=== PATIENT | female | born 1960 | race Caucasian/White ===

== ENCOUNTER → 2023-12-10 14:13 | Outpatient (REF) | payer MEDICARE, MEDICAID, SELFPAY | LOC: HWWDC 14:13 | PROVIDERS: ATTENDING PHYSICIAN Internal Medicine | DX: Z12.31 Encounter for screening mammogram for malignant neoplasm of breast (principal) | CPT/HCPCS: 77063; 77067 ==

== ENCOUNTER 2024-11-24 11:19 | Emergency (ER) | payer MEDICARE, MEDICAID, SELFPAY ==
[2024-11-24 11:22] VITALS: BP 133/71
[2024-11-24 11:26] VITALS: BP 133/71
--- NOTE | 2024-11-24 11:53 | ED.GENMED ---
History of Present Illness
General
Chief Complaint: Weakness
Time Seen by Provider: 11/24/24 11:21
History of Present Illness
History of Present Illness:
64-year-old female with history of bipolar disorder presenting from her facility for concern of hypoxia. Patient noted to have productive cough, with exposure to influenza at the facility. Oxygen saturation was high 80s to low 90s prior to
arrival. Patient on arrival without acute complaints. She does admit to coughing, however denies chest pain or difficulty breathing. Denies fever. Denies abdominal pain, nausea, vomiting. Denies any present acute complaints.
Past History
Past History
ED Past Medical History: Hypercholesterolemia, Psychiatric (Mood disorder) and Other (MR)
Social History
Tobacco: Non-smoker
Living: skilled nursing
Phy Exam
Physical Exam
Physical Exam:
General: Well-appearing, no clinical signs of dehydration, nontoxic and in no acute distress
HEENT: protecting airway
Neck: appears supple
CV: Normal heart rate, regular rhythm
Resp: Scattered rhonchi, no increased work breathing
Abd: Soft and non-distended, no tenderness to palpation
Extremities: No deformities, no swelling, no erythema
Neuro: alert, no focal neurologic deficit
: deferred
Rectal: deferred
Psych: Normal affect
Skin: Intact
Course
Orders/Labs/Results
Orders:
Orders
11/24/24 11:28
Electrocardiogram (*1) Stat
Reason for Study: Other
Other Reason for Exam: chest pain
EKG- Treatment ONCE
CR Chest - 2 Views Urgent
Comment:
Reason For Exam: cough, rhonchi
11/24/24 11:29
COVID-19 Antigen Urgent
Source: Nasal Swab
Complete Blood Count/With Diff Urgent
Comprehensive Metabolic Panel Urgent
Influenza A+B Rapid Molecular Urgent
RADHA Source: Nasal Swab
Specimen Description:
11/24/24 14:35
Doxycycline [Vibramycin] 100 mg PO NOW STA
Abnormal Lab Results
11/24/24
11:29
WBC 4.4 L 10^3/uL
(4.8-10.8)
RBC 3.80 L 10^6/uL
(4.20-5.40)
Hgb 11.7 L g/dL
(12.0-16.0)
Hct 36.5 L %
(37.0-47.0)
MCHC 32.1 L g/dL
(33.0-37.0)
Absolute Lymphs (auto) 1.1 L 10^3/uL
(1.2-3.4)
Creatinine 1.1 H mg/dL
(0.6-1.0)
Glucose 102 H mg/dl
(70-99)
Total Protein 6.1 L g/dl
(6.3-8.2)
11/24/24 11:29
11/24/24 11:29
Vital Signs
Initial and Last Documented VS:
Initial Vital Signs
Temp Pulse Resp BP Pulse Ox
97.6 F 71 18 133/71 97
11/24/24 11:22 11/24/24 11:22 11/24/24 11:22 11/24/24 11:22 11/24/24 11:22
Last Documented Vital Signs
Temp Pulse Resp BP Pulse Ox
97.6 F 68 19 133/66 94
11/24/24 11:22 11/24/24 12:00 11/24/24 11:45 11/24/24 12:00 11/24/24 12:00
MDM/Problems Addressed
MDM/Problems Addressed:
64-year-old female with history of bipolar disorder presenting from facility for concern of hypoxia. Vital signs on arrival are normal, normal oxygenation.
Patient is in no acute distress on arrival, no increased work of breathing, however scattered rhonchi. Report of flu exposure at her facility. Suspected influenza versus pneumonia. Currently stable from a respiratory perspective, no increased
work of breathing, no hypoxia. Plan for laboratory analysis, viral swabs, chest x-ray.
14:35-viral swabs are negative. Chest x-ray shows basilar pneumonia. Will start patient on antibiotic. Sats remain stable. At this time feel stable for discharge. Return precautions communicated and patient verbalized understanding
*EKG
Interpreted by ED Provider?: Yes
EKG Intrepretation Date: 11/24/24
EKG Intrepretation Time: 12:24
Interpretation: normal
Heart Rate: 73
Rate: normal
Rhythm: sinus
[place]: normal axis
Interval: normal interval
QRS Pattern: normal QRS
Ischemia: no ischemia
*Critical Care Note
Total Time (30-74mins, 75-104mins- exclusive of procedures): Not Applicable
ED Attending Note
-
Portions of this chart may have been created with voice recognition software.� Occasional wrong word or��sound alike� substitutions may have occurred due to the inherent limitations of voice recognition software.
Discharge Plan
Departure
Prescriptions:
No Action
guaifenesin [Robafen] 100 MG/5 ML liquid
10 ml PO Q4HPRN PRN (Reason: cough)
Ear Drops (carbamide peroxide) 1 DROP drops
5 drp otic (ear) WE
risperidone 1 MG tablet
1 mg PO HS
acetaminophen [Tylenol Extra Strength] 500 MG tablet
1,000 mg PO Q6HPRN PRN (Reason: mild pain/fever)
lorazepam 0.5 MG tablet
0.5 mg PO DAILYPRN PRN (Reason: anxiety with dental procedures)
lorazepam 0.5 MG tablet
0.5 mg PO BID@0800,1600
cholecalciferol (vitamin D3) 1,000 UNITS tablet
1,000 units PO QPM
levothyroxine 25 MCG tablet
25 mcg PO DAILY AT 0700 Qty: 30 0RF
lamotrigine [Lamictal] 150 mg Tablet
150 mg PO DAILY
polyethylene glycol 3350 [Miralax] 17 gram Powder In Packet
17 g PO DAILYPRN PRN (Reason: constipation)
lithium carbonate 300 mg Tablet Extended Release
600 mg PO DAILY@1800
docusate sodium [Colace] 100 mg Capsule
100 mg PO BID
Referrals:
UNKNOWN - PT NOT,INTERVIEWE [Family Provider] -
Interventions
Interventions:
*Risk Screen - Suicide Last Done: 11/24/24 11:22
*General Assessment Last Done: 11/24/24 11:22
*Neglect/Abuse Screening Last Done: 11/24/24 11:22
ED- Cardiac Assessment Last Done: 11/24/24 12:09
ED- Neurological Assessment Last Done: 11/24/24 12:09
ED- Pulmonary Assessment Last Done: 11/24/24 12:09
Discharge Date and Time
Print Language: UKRAINIAN
[2024-11-24 11:54] LABS: % Basophils 0.2 % (0-2); % Eosinophils 1.1 % (0-6); % Immature Granulocytes 0.2 % (0-0.5); % Monocytes 8.5 % (1.7-9.3); Absolute Eosinophils 0.1 10^3/uL (0-0.7); Absolute Lymphocytes 1.1 10^3/uL (1.2-3.4); Absolute Monocytes 0.4 10^3/uL (0.1-0.6); Absolute Neutrophils 2.9 10^3/uL (1.4-6.5); Hematocrit 36.5 % (37.0-47.0); Hemoglobin 11.7 g/dL (12.0-16.0); Mean Corp Hgb Conc. 32.1 g/dL (33.0-37.0); Mean Corpuscular Hgb 30.8 pg (27.0-31.0); Mean Corpuscular Volume 96.1 fL (81.0-99.0); Mean Platelet Volume 9.1 fL (7.4-10.4); Nucleated Red Blood Cells % 0 %; Platelet Count 231 10^3/uL (130-400); Red Cell Dist. Width 11.8 % (11.5-14.5); White Blood Cell Count 4.4 10^3/uL (4.8-10.8)
[2024-11-24 11:59] LABS: ALT (SGPT) 12 U/L (0-35); AST (SGOT) 20 U/L (14-36); Albumin 3.6 g/dl (3.5-5.0); Alkaline Phosphatase 59 U/L (38-126); Blood Urea Nitrogen 15 mg/dl (7-17); Calcium 9.2 mg/dl (8.4-10.2); Carbon Dioxide 26 mmol/L (22-30); Chloride 105 mmol/L (98-107); Glucose 102 mg/dl (70-99); Sodium 138 mmol/L (135-145); Total Bilirubin 0.5 mg/dl (0.2-1.3); Total Protein 6.1 g/dl (6.3-8.2); eGFR 56.46
[2024-11-24 12:00] VITALS: BP 133/66
[2024-11-24 12:03] LABS: COVID-19 Antigen Negative (Negative)
[2024-11-24 13:00] VITALS: BP 139/83
[2024-11-24] MEDS: VIBRAMYCIN 100 MG PO (15:08)
[2024-11-24 15:39] VITALS: BP 121/67
== END 2024-11-24 16:04 | disposition home or self-care (01) ==
LOC: EMR 11:19
PROVIDERS: EMERGENCY PHYSICIAN Student in an Organized Health Care Education/Training Program
DX: J18.9 Pneumonia, unspecified organism (principal); F31.9 Bipolar disorder, unspecified; Z11.52 Encounter for screening for COVID-19
CPT/HCPCS: 99285; 71046; 80053; 85025; 87502; 87811; 93005

== ENCOUNTER → 2025-01-31 10:47 | Outpatient (REF) | payer MEDICARE, MEDICAID, SELFPAY | LOC: WDC 10:47 | PROVIDERS: ATTENDING PHYSICIAN Hospitalist; FAMILY PHYSICIAN Internal Medicine | DX: Z12.31 Encounter for screening mammogram for malignant neoplasm of breast (principal) | CPT/HCPCS: 77063; 77067 ==

== ENCOUNTER → 2025-04-17 13:35 | Outpatient (REF) | payer MEDICARE, MEDICAID, SELFPAY | LOC: HWRAD 13:35 | PROVIDERS: ATTENDING PHYSICIAN Internal Medicine | DX: M81.0 Age-related osteoporosis without current pathological fracture (principal) | CPT/HCPCS: 77080 ==

== ENCOUNTER → 2025-10-19 10:10 | Outpatient (REF) | payer MEDICARE, MEDICAID, SELFPAY | LOC: HWRCS 10:10 | PROVIDERS: ATTENDING PHYSICIAN Nurse Practitioner | DX: R01.1 Cardiac murmur, unspecified (principal) | CPT/HCPCS: 93306 ==